=== PATIENT | male | born 1935 | race Caucasian/White ===

== ENCOUNTER → 2020-02-27 15:19 | Outpatient (CLI) | payer MEDICARE, OTHER, SELFPAY ==
--- NOTE | 2020-02-27 15:34 | XR_ITS ---
PROCEDURE: XR KNEE RT 2V CLINICAL INDICATION: KNEE REPLACEMENT Pain COMPARISON: No exams were available for comparison FINDINGS: No fracture or dislocation. No lytic or blastic change. There is normal mineralization. Mild osteoarthritic changes are present at the medial compartment and patellofemoral joint with small suprapatellar effusion. There is generalized vascular calcification. Sclerotic density is present involving the lateral aspect of the medial femoral condyle suggesting a bone island. Other findings:None. IMPRESSION: Osteoarthritis with knee joint effusion Dictated by: Marcos Bai MD 02/27/2020 16:21 Electronically signed by Marcos Bai MD in [place] 02/27/2020 16:21
== END ==
PROVIDERS: PCP Family Medicine; Visit Provider Family Medicine
DX: M25.561 Pain in right knee (principal)
CPT/HCPCS: 73560

== ENCOUNTER → 2020-03-14 13:14 | Outpatient (CLI) | payer MEDICARE, OTHER, SELFPAY ==
--- NOTE | 2020-03-14 13:17 | CT_ITS ---
PROCEDURE: CT KNEE RT WO CON CLINICAL HISTORY: RT KNEE JOINT EFFUSION,OSTEOARTHRITIS COMPARISON: No exams were available for comparison TECHNIQUE: Axial images obtained with sagittal and coronal reformats. All CT scans at the facility use one or more dose reduction, viz: automated exposure control, ma/kV adjustment per patient size (including targeted exams where dose is matched to indication, i.e. head), or iterative reconstruction technique. FINDINGS: The included extends of the distal right femur and proximal tibia and fibula are intact. There is bony demineralization. Moderately severe osteoarthritis of the medial femorotibial compartment with asymmetric joint space narrowing and small osteophyte formation demonstrated. There is mild osteoarthrosis of the lateral a femorotibial and patellofemoral articulations demonstrated with osteophytes. Mild degenerative arthrosis of the proximal femorotibial joint. Patellae is seen at an appropriate height. A small joint effusion is visualized. Diffuse atheromatous vascular calcifications are seen. IMPRESSION: 1.Moderate knee osteoarthrosis. 2. Negative for acute fracture, bony destruction or dislocation. 3. Atheromatous vascular calcifications are seen. Dictated by: Pasquale Fulton 03/14/2020 14:31 Electronically signed by Pasquale Fulton in [place] 03/14/2020 14:31
== END ==
PROVIDERS: PCP Family Medicine; Visit Provider Family Medicine
DX: M17.11 Unilateral primary osteoarthritis, right knee (principal); M25.461 Effusion, right knee
CPT/HCPCS: 73700

== ENCOUNTER → 2021-09-07 08:08 | Outpatient (CLI) | payer MEDICARE, OTHER, SELFPAY | PROVIDERS: Visit Provider Nurse Practitioner | DX: Z20.822 Contact with and (suspected) exposure to COVID-19 (principal) | CPT/HCPCS: C9803; U0003; U0005 ==

== ENCOUNTER 2021-09-24 16:34 | Emergency (ER) | payer MEDICARE, OTHER, SELFPAY ==
[2021-09-24 16:34] VITALS: BP 148/78; PULSE 98; RESP 18; TEMP 37.1; O2SAT 96; BMI 25.1
--- NOTE | 2021-09-24 17:11 | XR_ITS ---
PROCEDURE INFORMATION: Exam: XR Chest Exam date and time: 09/24/2021 5:11 PM Age: 85 years old Clinical indication: Cough; Additional info: Cough, weakness TECHNIQUE: Imaging protocol: XR of the chest. Views: 1 view. COMPARISON: No relevant prior studies available. FINDINGS: Lungs: Unremarkable. No consolidation. Pleural spaces: No definite pleural effusion. No pneumothorax. Heart/Mediastinum: Unremarkable. No cardiomegaly. Diaphragm: Minimal right hemidiaphragm elevation. Bones/joints: No acute findings. IMPRESSION: No acute findings.
[2021-09-24 17:34] LABS: Basophils # 0.1 K/mm3 (0-0.2); Basophils % 1.4 % (0.1-2.0); Eosinophils # 0.1 K/mm3 (0.0-0.4); Eosinophils % 0.9 % (0.1-12.0); Hematocrit 49.1 % (42.0-52.0); Hemoglobin 15.8 g/dL (14.1-18.0); Lymphocytes # 0.6 K/mm3 (0.7-4.5); Lymphocytes % 9.3 % (10-50); Mean Corpuscular HGB Conc 32.2 g/dL (31.8-35.4); Mean Corpuscular Volume 99.5 fl (80-94); Mean Platelet Volume 8.2 fl (7.4-10.4); Monocytes # 0.7 K/mm3 (0.1-1.0); Monocytes % 11.1 % (1.7-9.3); Neutrophils # 4.7 K/mm3 (1.8-7.8); Neutrophils % 77.3 % (37.0-80.0); Platelet Count 254 K/mm3 (142-424); Red Blood Count 4.93 M/mm3 (4.60-6.20); Red Cell Distribution Width 14.1 % (11.5-17.5); White Blood Count 6.1 K/mm3 (4.8-10.8)
[2021-09-24 17:36] LABS: Chloride 101 mmol/L (98-107); Potassium 4.3 mmoL/L (3.5-5.1); Sodium 135 mmol/L (136-145)
[2021-09-24 17:39] LABS: Alanine Aminotransferase 14 U/L (12-78); Albumin Level 4.4 g/dl (3.5-5.0); Albumin/Globulin Ratio 1.2 (1.1-1.8); Alkaline Phosphatase 99 U/L (38-126); Anion Gap 10.3 mEq/L (5-15); Aspartate Amino Transferase 34 U/L (17-59); Bilirubin,Total 0.5 mg/dl (0.2-1.3); Blood Urea Nitrogen 22 mg/dl (9-20); Carbon Dioxide 28 mmol/L (22.0-30.0); Creatinine Clearance Estimated 48 mL/min (50-200); Estimated Glomerular Filt Rate 53 ml/min (>60); GFR (African American) 64 ML/MIN (>60); Globulin 3.6 g/dL (1.3-3.2)
[2021-09-24 17:40] LABS: Calcium 8.3 mg/dl (8.4-10.2)
[2021-09-24 18:00] VITALS: BP 148/64; PULSE 86; O2SAT 94
[2021-09-24 18:14] LABS: Glucose 35 mg/dl (74-100); Troponin I 0.01 ng/ml (0.00-0.034)
--- NOTE | 2021-09-24 18:18 | PC.NURSE ---
DR MONK INFORMED OF CRITICAL BLOOD GLUCOSE
--- NOTE | 2021-09-24 18:22 | PC.NURSE ---
Pt's family updated
--- NOTE | 2021-09-24 18:27 | ECG_ITS ---
APPROVED REPORT Exam: Resting ECG HR:84 bpm ECG Measurements Heart Rate 84 AXES QRSd 141 QRS 134 QT 365 T 3 QTc 406 Conclusion ATRIAL FIBRILLATION INTRAVENTRICULAR CONDUCTION DELAY [130+ ms QRS DURATION] LATERAL MYOCARDIAL INFARCTION , OF INDETERMINATE AGE [40+ ms Q WAVE AND/OR ST/T ABNORMALITY IN I/aVL/V5/V6] ABNORMAL ECG UNCONFIRMED REPORT Electronically signed by : Alexander Lindo MD 09/24/2021 18:57:45
--- NOTE | 2021-09-24 18:57 | HMH.EDGENADL ---
ED Disposition Clinical Impression: Hypoglycemia Disposition: Home, Self-Care Condition on Discharge: Good Additional Instructions: Do not take glimepiride tonight. Starting tomorrow only take glimepiride once a day, in the morning. Contact your primary care provider on Tuesday for further instructions regarding your diabetes medication. Return to the emergency department if your symptoms return. Return to the emergency department if any confusion, sweatiness, or shakiness. Eat a snack tonight before bed. COVID test was sent, you will be called result is positive. Referrals: Alaina Dang MD [Primary Care Provider] - - Critical Care Critical Care Time: No Attestation: On 09/24/21, the high probability of a clinically significant, sudden or life threatening deterioration of the following system(s) required my full and direct attention, intervention and personal management. The time I documented below is in addition to time spent performing reported procedures but includes the following listed in this critical care notation. Medical Decision Making - Kory Inquiry Pt receiving controlled substance: No Vital Signs: 09/24/21 16:34 09/24/21 18:00 09/24/21 19:00 Temperature 98.7 F Temperature Source Oral Pulse Rate 86 82 Pulse Rate [Left Radial] 98 H Respiratory Rate 18 Blood Pressure 148/64 H 140/78 Blood Pressure [Left Arm] 148/78 H Blood Pressure Mean [Left Arm] 101 Blood Pressure Source [Left Arm] Automatic Cuff Blood Pressure Position [Left Arm] Sitting 02 Sat by Pulse Oximetry 96 94 L 97 Oxygen Delivery Method Room Air 09/24/21 19:31 09/24/21 20:13 Temperature Temperature Source Pulse Rate 87 89 Pulse Rate [Left Radial] Respiratory Rate Blood Pressure 159/77 H 142/73 H Blood Pressure [Left Arm] Blood Pressure Mean [Left Arm] Blood Pressure Source [Left Arm] Blood Pressure Position [Left Arm] 02 Sat by Pulse Oximetry 99 99 Oxygen Delivery Method Room Air - Lab Data Lab Results 09/24/21 17:20: WBC 6.1, RBC 4.93, Hgb 15.8, Hct 49.1, MCV 99.5 H, MCH 32.0 H, MCHC 32.2, RDW 14.1, Plt Count 254, MPV 8.2, Neut % (Auto) 77.3, Lymph % (Auto) 9.3 L, Stewart % (Auto) 11.1 H, Eos % (Auto) 0.9, Baso % (Auto) 1.4, Neut # (Auto) 4.7, Lymph # (Auto) 0.6 L, Stewart # (Auto) 0.7, Eos # (Auto) 0.1, Baso # (Auto) 0.1 09/24/21 17:20: Sodium 135 L, Potassium 4.3, Chloride 101, Carbon Dioxide 28, Anion Gap 10.3, BUN 22 H, Creatinine 1.30 H, Estimated Creat Clear 48, Estimated GFR 53 L, Est GFR ( Amer) 64, Glucose 35 L*, Calcium 8.3 L, Total Bilirubin 0.5, AST 34, ALT 14, Alkaline Phosphatase 99, Troponin I 0.01, Total Protein 8.0, Albumin 4.4, Globulin 3.6 H, Albumin/Globulin Ratio 1.2 09/24/21 19:25: POC Glucose 85 Result diagrams: 09/24/21 17:20 09/24/21 17:20 Orders (Tests/Meds): ED MEDICATIONS Generic Name Dose Route Start Last Admin Trade Name Freq PRN Reason Stop Dose Admin Sodium Chloride 10 ml 09/24/21 17:11 Sodium Chloride 0.9% 10ml Flush Syringe IV 10/24/21 17:10 NEEDED PRN Maintain IV Site Discontinued Medications Generic Name Dose Route Start Last Admin Trade Name Freq PRN Reason Stop Dose Admin Dextrose 50 ml 09/24/21 18:15 09/24/21 18:19 Dextrose 50% 50ml Syringe (Crash Cart) IVP 09/24/21 18:16 50 ml ONCE ONE Administration ORDERS Category Date Time Status Covid-19 Nasal PCR ([facility]) Routine Lab 09/24/21 17:20 Received Troponin I Q3H Lab 09/24/21 20:00 Received Troponin I Q3H Lab 09/24/21 23:15 Ordered - Radiology Data #1 Image(s): Chest Image Reviewed: Yes I have reviewed radiologist's interpretation PROCEDURE INFORMATION: Exam: XR Chest Exam date and time: 09/24/2021 5:11 PM Age: 85 years old Clinical indication: Cough; Additional info: Cough, weakness TECHNIQUE: Imaging protocol: XR of the chest. Views: 1 view. COMPARISON: No relevant prior studies available. FINDI
[2021-09-24 19:00] VITALS: BP 140/78; PULSE 82; O2SAT 97
[2021-09-24 19:31] VITALS: BP 159/77; PULSE 87; O2SAT 99
[2021-09-24 19:33] LABS: POC Glucose,Bedside 85 (70-110)
[2021-09-24 20:13] VITALS: BP 142/73; PULSE 89; O2SAT 99
[2021-09-24 20:19] LABS: POC Glucose,Bedside 85 (70-110)
[2021-09-24 20:37] LABS: Troponin I 0.01 ng/ml (0.00-0.034)
[2021-09-24 20:42] VITALS: BP 132/73; PULSE 93; RESP 16; TEMP 37.1; O2SAT 97
== END 2021-09-24 20:43 | disposition home or self-care (01) ==
PROVIDERS: Emergency Provider Emergency Medicine; PCP Family Medicine
DX: U07.1 COVID-19 (principal); R53.1 Weakness; E11.649 Type 2 diabetes mellitus with hypoglycemia without coma; Z79.84 Long term (current) use of oral hypoglycemic drugs
CPT/HCPCS: 36415; 71045; 80053; 82962; 84484; 85025; 93005; 99281; C9803; U0003; U0005

== ENCOUNTER → 2021-09-29 08:51 | Outpatient (CLI) | payer MEDICARE, OTHER, SELFPAY ==
[2021-09-30 07:06] LABS: Covid-19 Nasal PCR Sendout Lex POSITIVE
== END ==
PROVIDERS: PCP Family Medicine; Visit Provider Nurse Practitioner
DX: U07.1 COVID-19 (principal)
CPT/HCPCS: C9803; U0004; U0005

== ENCOUNTER → 2023-03-08 09:21 | Outpatient (POV) | payer MEDICARE, OTHER, SELFPAY | PROVIDERS: Visit Provider Dermatology | DX: Z00.00 Encounter for general adult medical examination without abnormal findings (principal) ==

== ENCOUNTER 2024-02-02 18:10 | Emergency (ER) | payer MEDICARE, OTHER, SELFPAY ==
[2024-02-02 18:10] VITALS: BP 185/83; PULSE 83; RESP 20; TEMP 36.7; O2SAT 97; BMI 24.7
--- NOTE | 2024-02-02 18:16 | PC.NURSE ---
DR GOMEZ AT BEDSIDE
--- NOTE | 2024-02-02 18:19 | CT_ITS ---
PROCEDURE INFORMATION: Exam: CT Abdomen And Pelvis Without Contrast Exam date and time: 02/02/2024 6:36 PM Age: 88 years old Clinical indication: Abdominal pain; Flank; Left; Additional info: Acute left flank pain TECHNIQUE: Imaging protocol: Computed tomography of the abdomen and pelvis without contrast. Radiation optimization: All CT scans at this facility use at least one of these dose optimization techniques: automated exposure control; mA and/or kV adjustment per patient size (includes targeted exams where dose is matched to clinical indication); or iterative reconstruction. COMPARISON: CR XR CHEST PORTABLE 09/24/2021 5:23 PM FINDINGS: Liver: Decreased density throughout the liver compatible with hepatic steatosis. Gallbladder and bile ducts: Gallbladder unremarkable. Cholelithiasis versus gallbladder sludge Pancreas: Pancreas unremarkable Spleen: The spleen is unremarkable. Adrenal glands: Normal. No mass. Kidneys and ureters: 4 mm partially obstructing distal left ureteral calculus. Associated moderate left hydroureteronephrosis. Perinephric stranding. Findings nonspecific and may reflect acute versus chronic inflammatory change. Stomach and bowel: Duodenal diverticulum. Colonic diverticulosis. No evidence of diverticulitis. Appendix: No evidence of appendicitis. Intraperitoneal space: Unremarkable. No free air. No significant fluid collection. Vasculature: Unremarkable. No abdominal aortic aneurysm. Lymph nodes: Unremarkable. No enlarged lymph nodes. Urinary bladder: Unremarkable as visualized. Reproductive: Unremarkable as visualized. Bones/joints: Unremarkable. No acute fracture. Soft tissues: Unremarkable. Other findings: Bilateral punctate nonobstructing calculi. IMPRESSION: 4 mm partially obstructing distal left ureteral calculus. Associated moderate left hydroureteronephrosis.
[2024-02-02 18:26] LABS: Basophils # 0.1 K/mm3 (0-0.2); Basophils % 1.4 % (0.1-2.0); Eosinophils # 0.5 K/mm3 (0.0-0.4); Eosinophils % 7.8 % (0.1-12.0); Hematocrit 54.7 % (42.0-52.0); Hemoglobin 17.3 g/dL (14.1-18.0); Lymphocytes # 1.8 K/mm3 (0.7-4.5); Lymphocytes % 27.1 % (10-50); Mean Corpuscular HGB Conc 31.6 g/dL (31.8-35.4); Mean Corpuscular Hemoglobin 33.7 pg (27.0-31.2); Mean Corpuscular Volume 106.6 fl (80-94); Mean Platelet Volume 8.1 fl (7.4-10.4); Monocytes # 0.3 K/mm3 (0.1-1.0); Monocytes % 4.4 % (1.7-9.3); Neutrophils % 59.3 % (37.0-80.0); Platelet Count 262 K/mm3 (142-424); Red Blood Count 5.13 M/mm3 (4.60-6.20); Red Cell Distribution Width 14.4 % (11.5-17.5); White Blood Count 6.7 K/mm3 (4.8-10.8)
[2024-02-02] MEDS: KETOROLAC 30MG/ML VIAL 15 MG IV (18:30)
[2024-02-02] MEDS: ONDANSETRON 4MG/2ML VIAL 4 MG IV (18:30)
[2024-02-02 18:31] LABS: Chloride 107 mmol/L (98-107); Potassium 3.9 mmoL/L (3.5-5.1); Sodium 139 mmol/L (136-145)
[2024-02-02] MEDS: LACTATED RINGERS 1000ML 1,000 ML 999 ML IV (18:31)
[2024-02-02 18:34] LABS: Alanine Aminotransferase 14 U/L (12-78); Albumin Level 4.1 g/dl (3.5-5.0); Albumin/Globulin Ratio 1.2 (1.1-1.8); Alkaline Phosphatase 121 U/L (38-126); Anion Gap 9.9 mEq/L (5-15); Aspartate Amino Transferase 28 U/L (17-59); Bilirubin,Total 0.5 mg/dl (0.2-1.3); Blood Urea Nitrogen 10 mg/dl (9-20); Carbon Dioxide 26 mmol/L (22.0-30.0); Creatinine Clearance Estimated 49 mL/min (50-200); Estimated Glomerular Filt Rate 57 ml/min (>60); GFR (African American) 69 ML/MIN (>60); Globulin 3.4 g/dL (1.3-3.2); Total Protein,Serum 7.5 g/dl (6.3-8.2)
[2024-02-02 18:35] LABS: Glucose 141 mg/dl (74-100)
--- NOTE | 2024-02-02 18:37 | PC.NURSE ---
PT TO CT
--- NOTE | 2024-02-02 18:42 | ED_ITS ---
Discharge Plan Disposition Patient Disposition: Home, Self-Care Prescriptions Prescriptions: New ibuprofen 800 mg tablet 800 mg PO TID PRN (Reason: pain) 7 Days Qty: 20 0RF hydrocodone-acetaminophen 5-325 mg tablet 1 tab PO Q6H PRN (Reason: pain) 3 Days Qty: 12 0RF tamsulosin [Flomax] 0.4 mg capsule 0.4 mg PO DAILY 7 Days Qty: 7 0RF ondansetron 4 mg tablet,disintegrating 4 mg PO Q6H PRN (Reason: nausea and vomiting) 5 Days Qty: 20 0RF Referrals Follow up/Referrals: Alexander Waldrop MD [Primary Care Provider] - See instructions Activity Restrictions/Add. Instructions Additional Instructions/Restrictions: You have a 7 mm obstructing kidney stone on your left side. I spoke with Dr. Michele who wants you to call his [place] office at [phone] first thing in the morning and tell the staff that Dr. Michele wants to see you at his [place] office tomorrow morning. They are to give you a appointment time upon calling. Please strain your urine drink plenty of fluids take the medications that are prescribed to you. Clinical Impressions Clinical Impression: Hydronephrosis concurrent with and due to calculi of kidney and ureter Instructions Patient Instructions: DI for Acute Abdominal Pain Discharge ED Provider: Donte Tovar General Adult HPI General Chief complaint: Abdominal Pain Stated complaint: LT side abd pain Time Seen by Provider: 02/02/24 18:16 Mode of Arrival: Wheelchair Source of Information: Patient and Spouse Limitations: No Limitations Description of Symptoms (Recalled from ER Triage Doc. by RN): pt has left sided flank pain x 1 hour and has history of kidney stones History of Present Illness HPI narrative: Patient is a 88-year-old male presenting today with 1 hour of sudden left-sided flank pain. States is severe in nature has a history of kidney stones but it has been many years states this feels very similar to that. Denies any hematuria denies any frequency dysuria urgency. No fevers. Has a history of hypertension and diabetes. Related Data Previous Rx's Medication Instructions Recorded hydrocodone 5 mg-acetaminophen 325 1 tab PO Q6H PRN pain 3 days #12 02/02/24 mg tablet tabs ibuprofen 800 mg tablet 800 mg PO TID PRN pain 7 days #20 02/02/24 tabs ondansetron 4 mg disintegrating 4 mg PO Q6H PRN nausea and 02/02/24 tablet vomiting 5 days #20 tabs tamsulosin 0.4 mg capsule (Flomax) 0.4 mg PO DAILY 7 days #7 caps 02/02/24 Allergies Allergy/AdvReac Type Severity Reaction Status Date / Time INGREDIENT: NO KNOWN - NO Allergy Unknown Uncoded 08/02/17 15:00 KNOWN DRUG ALLERGY [facility] Disclaimer: The information contained in this section may have been updated after the patient was seen, as this information can be updated by other users. Social History Smoking Status: Never smoker alcohol intake: never current occupational status: other Travel in the last 8 weeks: None ROS Obtained: Yes All systems reviewed & no additional complaints except as documented Physical Exam General General appearance: in distress (Significant pain) Respiratory Respiratory exam: Present normal lung sounds bilaterally Cardiovascular Cardiovascular exam: Present regular rate and normal rhythm Abdominal Exam Abdominal exam: Present soft; Absent distention or tenderness Neurological Exam Neurological exam: Present alert and oriented X3 Medical Decision Making Kory Inquiry Pt receiving controlled substance: No Vital Signs: 02/02/24 18:10 Temperature 98.0 F Temperature Source Oral Pulse Rate [Right Radial] 83 Respiratory Rate 20 Blood Pressure [Right Arm] 185/83 H Blood Pressure Mean [Right Arm] 117 02 Sat by Pulse Oximetry 97 Oxygen Delivery Method Room Air Lab Data Lab results reviewed: Yes I reviewed the patient's lab results. Lab Results 02/02/24 18:20: WBC 6.7, RBC 5.13, Hgb 17.3, Hct 54.7 H, MCV 106.6 H, MCH 33.7 H , MCHC 31.6 L, RDW 14.4, Plt Count 262, MPV 8.1, Neut % (Auto) 59.3, Lymph % (Auto) 27.1, Mccreary % (Auto) 4.4, Eos % (Auto) 7.8, Baso % (Auto) 1.4, Neut # (Auto) 4.0, Lymph # (Auto) 1.8, Mccreary # (Auto) 0.3, Eos # (Auto) 0.5 H, Baso # (Auto) 0.1, Sodium 139, Potassium 3.9, Chloride 107, Carbon Dioxide 26, Anion Gap 9.9, BUN 10, Creatinine 1.20, Estimated Creat Clear 49, Estimated GFR 57 L, Est GFR ( Amer) 69, Glucose 141 H, Calcium 9.0, Total Bilirubin 0.5, AST 28, ALT 14, Alkaline Phosphatase 121, Total Protein 7.5, Albumin 4.1, Globulin 3.4 H, Albumin/Globulin Ratio 1.2 02/02/24 19:15: Urine Color Yellow, Urine Appearance Clear, Urine pH 5.5, Ur Specific Montara 1.020, Urine Protein Negative, Urine Glucose (UA) 3+, Urine Ketones Negative, Urine Blood Negative, Urine Nitrate Negative, Urine Bilirubin Negative, Urine Urobilinogen 1.0, Ur Leukocyte Esterase Negative, Urine RBC None, Urine WBC None, Ur Squamous Epith Cells None, Urine Bacteria None 02/02/24 18:20 02/02/24 18:20 Orders (Tests/Meds): ED MEDICATIONS Discontinued Medications Generic Name Dose Route Start Last Admin Trade Name Freq PRN Reason Stop Dose Admin Hydrocodone Bitart/Acetaminophen 1 tab 02/02/24 20:12 Hydrocodone/Apap 5/325 Mg Tablet PO 02/02/24 20:13 ONCE ONE Lactated Ringer's 1,000 mls @ 999 mls/hr 02/02/24 18:30 02/02/24 18:31 Lactated Ringer's 1000 Ml Bag IV 02/02/24 19:30 999 mls/hr .Q1H1M JUDITH Administration Ibuprofen 800 mg 02/02/24 20:12 Ibuprofen 400 Mg Tablet PO 02/02/24 20:13 ONCE ONE Ketorolac Tromethamine 15 mg 02/02/24 18:19 02/02/24 18:30 Ketorolac 30mg/Ml Vial IV 02/02/24 18:20 15 mg ONCE ONE Administration Morphine Sulfate 4 mg 02/02/24 19:22 02/02/24 19:25 Morphine 4mg/Ml Syringe IV 02/02/24 19:23 4 mg ONCE ONE Administration Ondansetron HCl 4 mg 02/02/24 18:19 02/02/24 18:30 Ondansetron 4mg/2ml Vial IV 02/02/24 18:20 4 mg ONCE ONE Administration Tamsulosin HCl 0.4 mg 02/02/24 20:12 Tamsulosin 0.4mg Capsule PO 02/02/24 20:13 ONCE ONE ORDERS Category Date Time Status CT abdomen pelvis wo con Stat Cat Scan 02/02/24 18:19 Taken CBC w/Auto Diff [Complete Blood Count Auto Diff] Stat Lab 02/02/24 18:20 Completed CMP [Comprehensive Metabolic Panel] Stat Lab 02/02/24 18:20 Completed UA [Urinalysis and Microscopic] Stat Lab 02/02/24 19:15 Completed Medical Decision Narrative: Patient is an 88-year-old male present today with sudden left-sided flank pain differential includes AAA, musculoskeletal strain, kidney stone etc. Noncontrasted CT scan was ordered in addition to IV fluids Toradol and Zofran and will reassess. CT scan performed to person interpreted which shows a large proximal ureteral stone measuring 7 mm on my measurement with obstruction and hydroureter and hydronephrosis. Patient unable to provide a urine at this point but has no clinical signs or symptoms of sepsis or urinary tract infection. This stone is large patient still has some symptoms after Toradol is unlikely to pass. Also they have a very large trip planned outside of the country. I discussed with him multiple options including transfer versus attempted outpatient follow-up versus trial of passage. Their preference would be to be evaluated by a urologist which we do not have at [place]. I will discuss the case with Dr. Michele with possible we are attempting to make contact. Reassessment 8:17 PM patient has required serial doses of pain medicine. I spoke with Dr. Michele who is on-call for [facility]. He gave the patient an option of following up outpatient which patient agreed to. Patient will call Dr. Michele's [place] office first thing in the morning phone number was provided, and he is to tell their staff that Dr. Michele wants to see him at his [place] office tomorrow. They will give him a appointment time at that moment. He was given prescription of ibuprofen Zofran Flomax and [place]. He was given a urine strainer and advised to push p.o. fluids. He was given a dose of oral medications prior to being discharged I offered to send his medications to [facility] pharmacy but his refused to drive outside of town therefore his scripts were sent to [id number]. Patient was discharged in stable condition. Critical Care Critical Care Time Critical Care Time: No
--- NOTE | 2024-02-02 18:49 | PC.NURSE ---
DR GOMEZ AT BEDSIDE TO UPDATE PT AND FAMILY
--- NOTE | 2024-02-02 19:09 | PC.NURSE ---
Call out to Dr. Michele with Urology; awaiting call back.
--- NOTE | 2024-02-02 19:15 | PC.NURSE ---
urine collected and sent to lab
[2024-02-02 19:25] LABS: Microscopic, Urine URINE MICROSCOPIC (MICROSCOPIC)
[2024-02-02] MEDS: MORPHINE 4MG/ML SYRINGE 4 MG IV (19:25)
[2024-02-02 19:29] LABS: Appearance,Urine CLEAR (Clear); Bilirubin,Urine Negative (Negative); Blood, Urine Negative (Negative); Color,Urine YELLOW (Yellow); Glucose,Urine (UA) 3+ (Negative); Ketones,Urine Negative (Negative); Leukocyte Esterase,Urine Negative (Negative); Nitrate,Urine Negative (Negative); PH,Urine 5.5 (5.0-8.5); Protein,Urine Negative (Negative)
[2024-02-02] MEDS: IBUPROFEN 400 MG TABLET 800 MG PO (20:25)
[2024-02-02] MEDS: TAMSULOSIN 0.4MG CAPSULE 0.400000000000000022 MG PO (20:25)
[2024-02-02] MEDS: HYDROCODONE/APAP 5/325 MG TABLET 1 TAB PO (20:25)
[2024-02-02 20:35] VITALS: BP 161/86; PULSE 81; RESP 20; TEMP 36.6; O2SAT 97
== END 2024-02-02 20:36 | disposition home or self-care (01) ==
PROVIDERS: Emergency Provider Student in an Organized Health Care Education/Training Program; PCP Family Medicine
DX: N13.2 Hydronephrosis with renal and ureteral calculous obstruction (principal); N13.4 Hydroureter; R10.32 Left lower quadrant pain; I10 Essential (primary) hypertension; E11.9 Type 2 diabetes mellitus without complications
CPT/HCPCS: 74176; 80053; 81001; 85025; 96361; 96374; 96375; 99285; J1885; J2270; J2405; J7120

== ENCOUNTER 2024-02-05 17:07 | Emergency (ER) | payer MEDICARE, OTHER, SELFPAY ==
[2024-02-05 17:15] VITALS: BP 167/84; PULSE 88; RESP 16; TEMP 36.7; O2SAT 97; BMI 24.0
--- NOTE | 2024-02-05 17:34 | HMH.EDGENADL ---
Discharge Plan Prescriptions Prescriptions: No Action ibuprofen 800 mg tablet 800 mg PO TID PRN (Reason: pain) 7 Days Qty: 20 0RF hydrocodone-acetaminophen 5-325 mg tablet 1 tab PO Q6H PRN (Reason: pain) 3 Days Qty: 12 0RF tamsulosin [Flomax] 0.4 mg capsule 0.4 mg PO DAILY 7 Days Qty: 7 0RF ondansetron 4 mg tablet,disintegrating 4 mg PO Q6H PRN (Reason: nausea and vomiting) 5 Days Qty: 20 0RF Referrals Follow up/Referrals: Alexander Waldrop MD [Primary Care Provider] - See instructions Discharge ED Provider: Shelley Franklin General Adult HPI General Stated complaint: Possible kidney stone Time Seen by Provider: 02/05/24 17:25 Related Data Previous Rx's Medication Instructions Recorded hydrocodone 5 mg-acetaminophen 325 1 tab PO Q6H PRN pain 3 days #12 02/02/24 mg tablet tabs ibuprofen 800 mg tablet 800 mg PO TID PRN pain 7 days #20 02/02/24 tabs ondansetron 4 mg disintegrating 4 mg PO Q6H PRN nausea and 02/02/24 tablet vomiting 5 days #20 tabs tamsulosin 0.4 mg capsule (Flomax) 0.4 mg PO DAILY 7 days #7 caps 02/02/24 Allergies Allergy/AdvReac Type Severity Reaction Status Date / Time INGREDIENT: NO KNOWN - NO Allergy Unknown Uncoded 08/02/17 15:00 KNOWN DRUG ALLERGY [facility] Disclaimer: The information contained in this section may have been updated after the patient was seen, as this information can be updated by other users. Social History (Updated 02/02/24 @ 20:18 by Donte Tovar MD) Smoking Status: Never smoker alcohol intake: never current occupational status: other Travel in the last 8 weeks: None ROS Obtained: Yes Systems reviewed as appropriate & no additional complaints except as documented Physical Exam General General appearance: alert and in no apparent distress Head Head exam: atraumatic and normal inspection Eye Eye exam: Present normal appearance, PERRL and EOMI ENT ENT exam: Present normal exam, normal oropharynx and mucous membranes moist Neck Neck exam: Present normal inspection, full ROM and trachea midline; Absent lymphadenopathy Chest Chest inspection: Present normal inspection and symmetric chest wall rise Respiratory Respiratory exam: Present normal lung sounds bilaterally; Absent accessory muscle use Cardiovascular Cardiovascular exam: Present regular rate, normal rhythm, normal heart sounds, +S1 and +S2 Abdominal Exam Abdominal exam: Present soft and normal bowel sounds; Absent tenderness, guarding or rebound Extremities Exam Extremities exam: Present normal inspection and full ROM Neurological Exam Neurological exam: Present alert, oriented X3 and CN II-XII intact Psychiatric Psychiatric exam: Present normal affect and normal mood Skin Skin exam: Present warm, dry and normal color Lymphatic Lymphatic Findings: no adenopathy Medical Decision Making Medical Decision Narrative: In summary patient is a [age, sex] who presents to the emergency department for evaluation of [complaint]. Patient is [hemodynamically stable/unstable] upon arrival, [febrile/afebrile]. [Unremarkable physical exam, nonfocal exam versus focal remarkable exam]. Differential diagnosis includes [DDx]. Initial workup will be conducted with [hematologic labs, imaging, respiratory swab, describe workup]. Initial interventions include [crystalloid bolus, medications, p.o. challenge, etc.] initial workup reviewed by me [hematologic labs are remarkable for... Imaging remarkable for... Urinalysis remarkable for]. Upon repeat evaluation [patient had acceptable resolution of symptoms, had persistent pain for which additional interventions were conducted (describe interventions), tolerated p.o., was ambulatory, etc.]. Given this [patient is appropriate for discharge at this time and will be discharged with a prescription for... The case was discussed with hospital medicine regarding management and they will admit the patient their service for continued evaluation at this time... Etc.] Places where you can increase complexity: I informally interpreted the patient's chest x-ray or CT read and is remarkable for... Documenting what the playground monitor shows with rate and rhythm Consideration of test but deferring. Ex: I considered chest x-ray on this patient however given that they have no oxygen requirement and are clear to auscultation all lung brantley will be deferred. Social determinants of health: Given that patient is undomiciled increases complexity. Given that patient has polysubstance abuse compounds all aspects of care
--- NOTE | 2024-02-05 17:39 | ED_ITS ---
Discharge Plan Disposition Patient Disposition: Home, Self-Care Condition: Good Prescriptions Prescriptions: New hydrocodone-acetaminophen 5-325 mg tablet 1 tab PO Q8H PRN (Reason: pain) Qty: 12 0RF No Action ibuprofen 800 mg tablet 800 mg PO TID PRN (Reason: pain) 7 Days Qty: 20 0RF hydrocodone-acetaminophen 5-325 mg tablet 1 tab PO Q6H PRN (Reason: pain) 3 Days Qty: 12 0RF tamsulosin [Flomax] 0.4 mg capsule 0.4 mg PO DAILY 7 Days Qty: 7 0RF ondansetron 4 mg tablet,disintegrating 4 mg PO Q6H PRN (Reason: nausea and vomiting) 5 Days Qty: 20 0RF Referrals Follow up/Referrals: Alexander Waldrop MD [Primary Care Provider] - See instructions Activity Restrictions/Add. Instructions Additional Instructions/Restrictions: You were evaluated in the emergency department today. You were seen here 3 days ago and prescribed for medications. Below I have listed her medications and what they are for. -Hydrocodone-acetaminophen - This is for pain. This is a controlled substance which is a narcotic. It may make you sleepy. Do not drive or operate heavy machinery while taking this medication. Take it every 6-8 hours as needed for pain. I did refill this medication for you in case you have run out. If you still have medications at home, do not pick it up. This medication contains tylenol. Do not take tylenol with it. If you do not want to take this strong of a medication, you may take tylenol instead. -Flomax - This medication helps flush out your kidneys and increase his urine flow. Take this nightly as explained on the bottle. -Ondansetron - Sometimes pain and pain medications can make you feel nauseated. This medication is to treat nausea. Take it every 6-8 hours as needed for nausea and vomiting as instructed on the bottle. -Ibuprofen - Take ibuprofen every 3 times a day as needed for pain. You may take it in combination with all of the other medications. Please call your urologist in the morning and let him know that you are still having persistent pain. Return to the emergency department for new or worsening symptoms, such as significant worsening of pain, intractable vomiting, or fever greater than 100.4 ?F. Clinical Impressions Clinical Impression: Ureterolithiasis, Renal colic Instructions Patient Instructions: DI for Kidney Stones, DI for Acute Pain -- Adult Discharge ED Provider: Shelley Franklin General Adult HPI General Chief complaint: PAIN Stated complaint: Possible kidney stone Time Seen by Provider: 02/05/24 17:25 History of Present Illness HPI narrative: This patient is an 88-year-old male presenting to the emergency department for evaluation with concern for left flank pain. Patient was seen here 3 days ago and diagnosed with an obstructive left kidney stone. He was given instructions for follow-up with Dr. Michele, and he saw him at the end of the week. He is scheduled for procedure on Tuesday. He notes that he was given 4 prescriptions at [facility], and he is not sure what to be taking when, so when his pain got worse today he took ibuprofen. Despite taking ibuprofen, he is in severe pain on his left flank. No fevers, vomiting, or other concerns noted. He states that he is been straining his urine but has not found any stone. No other concerns noted at this time. I reviewed patient's medical records and noted that he was seen here on 02/02/[address] scan that showed an obstructive left ureteral stone. Related Data Previous Rx's Medication Instructions Recorded hydrocodone 5 mg-acetaminophen 325 1 tab PO Q6H PRN pain 3 days #12 02/02/24 mg tablet tabs ibuprofen 800 mg tablet 800 mg PO TID PRN pain 7 days #20 02/02/24 tabs ondansetron 4 mg disintegrating 4 mg PO Q6H PRN nausea and 02/02/24 tablet vomiting 5 days #20 tabs tamsulosin 0.4 mg capsule (Flomax) 0.4 mg PO DAILY 7 days #7 caps 02/02/24 hydrocodone 5 mg-acetaminophen 325 1 tab PO Q8H PRN pain #12 tabs 02/05/24 mg tablet Allergies Allergy/AdvReac Type Severity Reaction Status Date / Time INGREDIENT: NO KNOWN - NO Allergy Unknown Uncoded 08/02/17 15:00 KNOWN DRUG ALLERGY [facility] Disclaimer: The information contained in this section may have been updated after the patient was seen, as this information can be updated by other users. Social History Smoking Status: Never smoker alcohol intake: never current occupational status: other Travel in the last 8 weeks: None ROS Obtained: Yes All systems reviewed & no additional complaints except as documented Physical Exam General General appearance: alert and in no apparent distress Comment: Uncomfortable appearing Head Head exam: atraumatic and normocephalic Eye Eye exam: Present normal appearance, PERRL and EOMI ENT ENT exam: Present normal exam, normal oropharynx, mucous membranes moist and normal external ear exam Neck Neck exam: Present normal inspection, full ROM and trachea midline; Absent tenderness Chest Chest inspection: Present normal inspection and symmetric chest wall rise; Absent tenderness Respiratory Respiratory exam: Present normal lung sounds bilaterally; Absent respiratory distress, wheezes, stridor or accessory muscle use Cardiovascular Cardiovascular exam: Present regular rate and normal rhythm Abdominal Exam Abdominal exam: Present soft; Absent distention, tenderness or guarding Extremities Exam Extremities exam: Present normal inspection, full ROM and normal capillary refill; Absent tenderness or edema Back Exam Back exam: Present full ROM and CVA tenderness (L) Neurological Exam Neurological exam: Present alert, oriented X3, CN II-XII intact and normal gait; Absent motor sensory deficit Psychiatric Psychiatric exam: Present normal affect and normal mood Skin Skin exam: Present warm and dry Medical Decision Making Medical Records Medical records reviewed: Yes I reviewed the patient's medical records. Kory Inquiry Pt receiving controlled substance: Yes Kory was queried for this patient: Yes Risks and benefits of using a controlled substance: were discussed with pt by me Vital Signs: 02/05/24 17:15 02/05/24 18:32 Temperature 98.1 F 98.1 F Temperature Source Oral Pulse Rate 78 Pulse Rate [Left Radial] 88 Respiratory Rate 16 16 Blood Pressure 161/89 H Blood Pressure [Right Arm] 167/84 H Blood Pressure Mean [Right Arm] 111 Blood Pressure Source [Right Arm] Automatic Cuff Blood Pressure Position [Right Arm] Sitting 02 Sat by Pulse Oximetry 97 Oxygen Delivery Method Room Air Room Air Lab Data Lab results reviewed: Yes I reviewed the patient's lab results. Lab Results 02/05/24 17:47: WBC 8.1, RBC 4.90, Hgb 16.1, Hct 52.0, MCV 106.1 H, MCH 32.9 H, MCHC 31.0 L, RDW 14.5, Plt Count 241, MPV 8.1, Neut % (Auto) 77.7, Lymph % (Auto) 11.8, Kern % (Auto) 4.9, Eos % (Auto) 3.8, Baso % (Auto) 1.9, Neut # (Auto) 6.3, Lymph # (Auto) 1.0, Kern # (Auto) 0.4, Eos # (Auto) 0.3, Baso # (Auto) 0.2, Sodium 139, Potassium 4.1, Chloride 104, Carbon Dioxide 28, Anion Gap 11.1, BUN 17 D, Creatinine 1.30 H, Estimated Creat Clear 45, Estimated GFR 52 L, Est GFR ( Amer) 63, Glucose 125 H, Calcium 8.7, Total Bilirubin 0.7, AST 27, ALT 14, Alkaline Phosphatase 126, Total Protein 7.1, Albumin 3.9, Globulin 3.2, Albumin/Globulin Ratio 1.2 02/05/24 17:53: Urine Color Yellow, Urine Appearance Clear, Urine pH 7.0, Ur Specific Rochelle 1.015, Urine Protein Negative, Urine Glucose (UA) 3+, Urine Ketones Negative, Urine Blood Negative, Urine Nitrate Negative, Urine Bilirubin Negative, Urine Urobilinogen 4.0, Ur Leukocyte Esterase Negative, Urine RBC Occasional, Urine WBC Occasional, Ur Squamous Epith Cells Occasional, Urine Bacteria Trace 02/05/24 17:47 02/05/24 17:47 Orders (Tests/Meds): ED MEDICATIONS Discontinued Medications Generic Name Dose Route Start Last Admin Trade Name Freq PRN Reason Stop Dose Admin Acetaminophen 1,000 mg 02/05/24 17:38 02/05/24 17:51 Acetaminophen 500mg Tab PO 02/05/24 17:39 1,000 mg ONCE ONE Administration Ketorolac Tromethamine 15 mg 02/05/24 17:38 02/05/24 17:51 Ketorolac 30mg/Ml Vial IV 02/05/24 17:39 15 mg ONCE ONE Administration Oxycodone HCl 10 mg 02/05/24 17:38 02/05/24 17:51 Oxycodone 5mg Immediate Release Tablet PO 02/05/24 17:39 10 mg ONCE ONE Administration ORDERS Category Date Time Status Complete Blood Count Auto Diff Stat Lab 02/05/24 17:47 Completed Comprehensive Metabolic Panel Stat Lab 02/05/24 17:47 Completed UA [Urinalysis and Microscopic] Stat Lab 02/05/24 17:53 Completed Urine Culture Stat Micro 02/05/24 18:00 Received Medical Decision Narrative: In summary, this patient is a 88-year-old male presenting to the Emergency Department for evaluation of with concern for left flank pain in the setting of known kidney stone. Differential diagnoses considered include but are not limited to renal colic, ureterolithiasis, infected stone, EMILY. Ruling out the most morbid conditions drove assessment. I reviewed patient's past medical records and noted evaluation here 3 days ago as per HPI. On exam, the patient is uncomfortable appearing but he is nontoxic-appearing with reassuring vital signs on cardiac telemetry. Workup included CBC, CMP, urinalysis, urine culture. He was given a bolus of IV fluids as well as IV Toradol, oral oxycodone, oral Tylenol for symptomatic improvement. Patient states that he does still have prescriptions at home, but he states he was given so many and he was not sure what to take when so he had not been taking them. He has follow-up scheduled for Tuesday for procedure, but he states he does not know if he can make it until then if he is unable to get the pain under control. On reassessment after administration of medications above, patient states that he is feeling much better. His pain is now well-controlled. Urine is not concerning for infection, and kidney function is around his baseline. No significant leukocytosis noted. He already has close follow-up arranged on Tuesday. Given that he has reassuring workup and is now feeling much better, I feel that he is appropriate for discharge with continued plan to follow-up with urology. I gave him detailed instructions with regard to the medications at home so that he is no longer confused and is able to take pain medication at home as appropriate. I did give him prescription for a few more days of narcotic pain medication given his ureterolithiasis and the fact that he is awaiting outpatient definitive management. He was given strict return precautions and was discharged after all questions were answered. Critical Care Critical Care Time Critical Care Time: No
[2024-02-05] MEDS: KETOROLAC 30MG/ML VIAL 15 MG IV (17:51)
[2024-02-05] MEDS: OXYCODONE 5MG IMMEDIATE RELEASE TABLET 10 MG PO (17:51)
[2024-02-05] MEDS: ACETAMINOPHEN 500MG TAB 1000 MG PO (17:51)
[2024-02-05 17:55] LABS: Basophils # 0.2 K/mm3 (0-0.2); Basophils % 1.9 % (0.1-2.0); Eosinophils # 0.3 K/mm3 (0.0-0.4); Eosinophils % 3.8 % (0.1-12.0); Hemoglobin 16.1 g/dL (14.1-18.0); Lymphocytes % 11.8 % (10-50); Mean Corpuscular Hemoglobin 32.9 pg (27.0-31.2); Mean Corpuscular Volume 106.1 fl (80-94); Mean Platelet Volume 8.1 fl (7.4-10.4); Monocytes # 0.4 K/mm3 (0.1-1.0); Monocytes % 4.9 % (1.7-9.3); Neutrophils # 6.3 K/mm3 (1.8-7.8); Neutrophils % 77.7 % (37.0-80.0); Platelet Count 241 K/mm3 (142-424); Red Cell Distribution Width 14.5 % (11.5-17.5); White Blood Count 8.1 K/mm3 (4.8-10.8)
[2024-02-05 18:01] LABS: Chloride 104 mmol/L (98-107); Potassium 4.1 mmoL/L (3.5-5.1); Sodium 139 mmol/L (136-145)
[2024-02-05 18:05] LABS: Appearance,Urine CLEAR (Clear); Bilirubin,Urine Negative (Negative); Blood, Urine Negative (Negative); Color,Urine YELLOW (Yellow); Glucose,Urine (UA) 3+ (Negative); Ketones,Urine Negative (Negative); Leukocyte Esterase,Urine Negative (Negative); Microscopic, Urine URINE MICROSCOPIC (MICROSCOPIC); Nitrate,Urine Negative (Negative); Protein,Urine Negative (Negative); Specific Gravity, Urine 1.015 (1.005-1.030)
[2024-02-05 18:05] LABS: Alanine Aminotransferase 14 U/L (12-78); Albumin Level 3.9 g/dl (3.5-5.0); Albumin/Globulin Ratio 1.2 (1.1-1.8); Alkaline Phosphatase 126 U/L (38-126); Anion Gap 11.1 mEq/L (5-15); Aspartate Amino Transferase 27 U/L (17-59); Bilirubin,Total 0.7 mg/dl (0.2-1.3); Blood Urea Nitrogen 17 mg/dl (9-20); Calcium 8.7 mg/dl (8.4-10.2); Carbon Dioxide 28 mmol/L (22.0-30.0); Creatinine Clearance Estimated 45 mL/min (50-200); Estimated Glomerular Filt Rate 52 ml/min (>60); GFR (African American) 63 ML/MIN (>60); Globulin 3.2 g/dL (1.3-3.2); Glucose 125 mg/dl (74-100); Total Protein,Serum 7.1 g/dl (6.3-8.2)
[2024-02-05 18:12] LABS: Bacteria,Urine Trace /lpf; RBC,Urine Occasional #/hpf (0-3); Squamous Epithelial Cell,Urine Occasional #/hpf (0-5); WBC,Urine Occasional #/hpf (0-3)
[2024-02-05 18:32] VITALS: BP 161/89; PULSE 78; RESP 16; TEMP 36.7; O2SAT 98
--- NOTE | 2024-02-07 10:54 | PC.NURSE ---
discussed urine culture with , prescription for cefdinir sent to pharmacy of pt choice, pt contacted and updated about new medicine order
--- NOTE | 2024-02-08 08:46 | PC.NURSE ---
DISCUSSED URINE CULTURE WITH DR GOMEZ, NO NEW ORDERS
== END 2024-02-05 18:32 | disposition home or self-care (01) ==
PROVIDERS: Emergency Provider Emergency Medicine; PCP Family Medicine
DX: N20.1 Calculus of ureter (principal); N23 Unspecified renal colic; N39.0 Urinary tract infection, site not specified; B96.29 Other Escherichia coli [E. coli] as the cause of diseases classified elsewhere
CPT/HCPCS: 80053; 81001; 85025; 87086; 87088; 87186; 96374; 99284; J1885

== ENCOUNTER 2024-02-18 21:00 | Emergency (ER) | payer MEDICARE, OTHER, SELFPAY ==
[2024-02-18 21:02] VITALS: BP 183/83; PULSE 84; RESP 22; TEMP 37; O2SAT 98; BMI 24.3
--- NOTE | 2024-02-18 21:16 | CT_ITS ---
PROCEDURE INFORMATION: Exam: CT Abdomen And Pelvis With Contrast Exam date and time: 02/18/2024 10:08 PM Age: 88 years old Clinical indication: Abdominal pain; Flank; Left; Additional info: Recent lithotripsy/l flank pain TECHNIQUE: Imaging protocol: Computed tomography of the abdomen and pelvis with contrast. Total images: 316 Radiation optimization: All CT scans at this facility use at least one of these dose optimization techniques: automated exposure control; mA and/or kV adjustment per patient size (includes targeted exams where dose is matched to clinical indication); or iterative reconstruction. Contrast material: ISOVUE; Contrast volume: 75 ml; Contrast route: IV; COMPARISON: CT ABDOMEN PELVIS WO CON 02/02/2024 6:36 PM FINDINGS: Lungs: Minor bibasilar dependent atelectasis. Small focus of peripheral tree-in-bud opacity in the right lower lobe implying distal small airway inflammation, most likely subclinical. Pleural spaces: Left basilar pleural thickening/scarring. No pleural effusion. Heart: Normal heart size. Coronary arteries: Moderate coronary artery calcifications. Liver: There are few tiny subcentimeter hepatic hypodensities, far too small to characterize but statistically cysts. Otherwise, unremarkable liver. Gallbladder and biliary ducts: Cholelithiasis without secondary signs for acute cholecystitis. No bile duct dilatation. Pancreas: Normal. No ductal dilation. Spleen: Normal. No splenomegaly. Adrenal glands: Normal. No mass. Kidneys and ureters: Interval worsening moderate to severe left hydroureteronephrosis secondary to a 5 mm obstructing calculus in the distal ureter, axial image 115 and coronal image 42. Increasing left perinephric edema. Stable bilateral intrarenal calculi. No renal mass. Stomach and bowel: Moderate fluid distension of the stomach. Large duodenal diverticulum. No ileus or bowel obstruction. Unremarkable small bowel. Colonic interposition below the anterior right hemidiaphragm. Focal wall thickening of the descending colon associated with diverticular formation implying mild diverticulitis. Moderate diverticulosis of the descending and sigmoid colon. Collapsed rectum. Appendix: Normal appendix. Intraperitoneal space: Unremarkable. No free air. No significant fluid collection. Vasculature: Abdominal aorta is normal in caliber. Major abdominal vessels enhance appropriately. Pelvic phleboliths. Lymph nodes: Calcified bilateral hilar lymph nodes compatible with remote granulomatous disease. Urinary bladder: Unremarkable as visualized. Reproductive: Mild prostatomegaly. Bones/joints: Osseous demineralization. Moderate degenerative changes lower thoracic spine. Severe degenerative changes lumbar spine. Remote mild anterior wedge compression fracture T12 vertebral body. Mild degenerative changes bilateral hips and SI joints. Minor lumbar dextrocurvature. Soft tissues: Unremarkable. IMPRESSION: 1. Interval worsening now moderate to severe left hydroureteronephrosis. 2. Obstructing 5 mm distal left ureteral stone, slightly migrated distally from prior exam. 3. Increasing left perinephric edema, secondary to obstructive uropathy. 4. Interval focal mild diverticulitis of the descending colon. No complicating features. Underlying moderate diverticulosis. 5. Bilateral nephrolithiasis. 6. Additional stable chronic and incidental findings.
[2024-02-18] MEDS: ACETAMINOPHEN 1,000MG/100ML VIAL 1000 MG IV (21:21)
[2024-02-18] MEDS: KETOROLAC 30MG/ML VIAL 30 MG IV (21:21)
[2024-02-18] MEDS: ONDANSETRON 4MG/2ML VIAL 4 MG IV (21:21)
[2024-02-18 21:22] LABS: Appearance,Urine CLEAR (Clear); Bilirubin,Urine Negative (Negative); Blood, Urine 1+ (Negative); Color,Urine YELLOW (Yellow); Glucose,Urine (UA) 3+ (Negative); Ketones,Urine Negative (Negative); Leukocyte Esterase,Urine Negative (Negative); Nitrate,Urine Negative (Negative); Protein,Urine Negative (Negative); Urobilinogen,Urine 0.2 EU/dl (0.2)
[2024-02-18] MEDS: MORPHINE 2MG/ML SYRINGE 2 MG IV ×2 (21:22→21:24)
[2024-02-18 21:23] LABS: Basophils # 0.1 K/mm3 (0-0.2); Eosinophils # 0.3 K/mm3 (0.0-0.4); Eosinophils % 3.3 % (0.1-12.0); Hematocrit 46.5 % (42.0-52.0); Hemoglobin 16.1 g/dL (14.1-18.0); Lymphocytes # 1.4 K/mm3 (0.7-4.5); Lymphocytes % 14.4 % (10-50); Mean Corpuscular HGB Conc 34.7 g/dL (31.8-35.4); Mean Corpuscular Hemoglobin 36.9 pg (27.0-31.2); Mean Corpuscular Volume 106.4 fl (80-94); Mean Platelet Volume 8.2 fl (7.4-10.4); Monocytes # 0.7 K/mm3 (0.1-1.0); Monocytes % 6.9 % (1.7-9.3); Neutrophils % 74.3 % (37.0-80.0); Platelet Count 232 K/mm3 (142-424); Red Blood Count 4.37 M/mm3 (4.60-6.20); Red Cell Distribution Width 14.3 % (11.5-17.5); White Blood Count 9.4 K/mm3 (4.8-10.8)
[2024-02-18 21:27] LABS: Chloride 105 mmol/L (98-107)
--- NOTE | 2024-02-18 21:27 | ED_ITS ---
Discharge Plan Disposition Patient Disposition: Xfer Short-Term Hosp Condition: Fair Chief Complaint: PAIN Prescriptions Prescriptions: No Action hydrocodone-acetaminophen 5-325 mg tablet 1 tab PO Q8H PRN (Reason: pain) Qty: 12 0RF cefdinir 300 mg capsule 300 mg PO BID 10 Days Qty: 20 0RF ibuprofen 800 mg tablet 800 mg PO TID PRN (Reason: pain) 7 Days Qty: 20 0RF hydrocodone-acetaminophen 5-325 mg tablet 1 tab PO Q6H PRN (Reason: pain) 3 Days Qty: 12 0RF tamsulosin [Flomax] 0.4 mg capsule 0.4 mg PO DAILY 7 Days Qty: 7 0RF ondansetron 4 mg tablet,disintegrating 4 mg PO Q6H PRN (Reason: nausea and vomiting) 5 Days Qty: 20 0RF Referrals Follow up/Referrals: Alexander Waldrop MD [Primary Care Provider] - See instructions Clinical Impressions Clinical Impression: Hydronephrosis, Ureterolithiasis, Diverticulitis Stand Alone Forms Stand Alone Forms: Transfer Record - ED Discharge ED Provider: Ousmane Tucker General Adult HPI <Ousmane Tucker MD - Last Filed: 02/18/24 23:02> General Chief complaint: PAIN Stated complaint: Left side pain, history kidney stone Time Seen by Provider: 02/18/24 21:16 Mode of Arrival: Wheelchair Source of Information: Patient Limitations: No Limitations Description of Symptoms (Recalled from ER Triage Doc. by RN): Pt presents with left flank pain for 1 hr. Was seen [address] Winston at [facility] who did a lithotripsy on him. Pt denies any hematuria, nausea or vomiting, rates his pain 10/10 History of Present Illness HPI narrative: Patient is a 88-year-old male with past medical history of ureterolithiasis status post recent lithotripsy in [place] who presents emergency department for evaluation of left flank pain and vomiting. Stones were on the left. Onset of this was acute, 1 hour prior to arrival, severe in intensity, nonmodifiable, paroxysmal however severe at baseline with worsening. There is associated nonbloody vomiting. No other acute complaints at this time. Related Data Previous Rx's Medication Instructions Recorded hydrocodone 5 mg-acetaminophen 325 1 tab PO Q6H PRN pain 3 days #12 02/02/24 mg tablet tabs ibuprofen 800 mg tablet 800 mg PO TID PRN pain 7 days #20 02/02/24 tabs ondansetron 4 mg disintegrating 4 mg PO Q6H PRN nausea and 02/02/24 tablet vomiting 5 days #20 tabs tamsulosin 0.4 mg capsule (Flomax) 0.4 mg PO DAILY 7 days #7 caps 02/02/24 hydrocodone 5 mg-acetaminophen 325 1 tab PO Q8H PRN pain #12 tabs 02/05/24 mg tablet cefdinir 300 mg capsule 300 mg PO BID 10 days #20 caps 02/07/24 Allergies Allergy/AdvReac Type Severity Reaction Status Date / Time INGREDIENT: NO KNOWN - NO Allergy Unknown Uncoded 08/02/17 15:00 KNOWN DRUG ALLERGY PFSH <Ousmane Tucker MD - Last Filed: 02/18/24 23:02> [facility] Disclaimer: The information contained in this section may have been updated after the patient was seen, as this information can be updated by other users. Social History Smoking Status: Never smoker alcohol intake: never current occupational status: other Travel in the last 8 weeks: None <Ousmane Tucker MD - Last Filed: 02/18/24 23:02> ROS Obtained: Yes Systems reviewed as appropriate & no additional complaints except as documented Physical Exam <Ousmane Tucker MD - Last Filed: 02/18/24 23:02> General General appearance: alert and in distress Head Head exam: atraumatic and normocephalic Eye Eye exam: Present PERRL ENT ENT exam: Present mucous membranes moist Neck Neck exam: Present normal inspection Chest Chest inspection: Present normal inspection and symmetric chest wall rise Respiratory Respiratory exam: Absent respiratory distress Cardiovascular Cardiovascular exam: Present regular rate and normal rhythm Abdominal Exam Abdominal exam: Present soft; Absent tenderness Extremities Exam Extremities exam: Present normal inspection Neurological Exam Neurological exam: Present alert Psychiatric Psychiatric exam: Present normal affect Skin Skin exam: Present warm and dry Medical Decision Making <Ousmane Tucker MD - Last Filed: 02/18/24 23:02> Kory Inquiry Pt receiving controlled substance: No Vital Signs: 02/18/24 21:02 02/18/24 21:30 02/18/24 22:30 Temperature 98.6 F Temperature Source Oral Pulse Rate 75 75 Pulse Rate [Left] 84 Respiratory Rate 22 Blood Pressure 173/73 H 136/66 Blood Pressure [Right Arm] 183/83 H Blood Pressure Mean 98 89 Blood Pressure Mean [Right Arm] 116 Blood Pressure Source [Right Arm] Automatic Cuff Blood Pressure Position [Right Arm] Supine 02 Sat by Pulse Oximetry 98 99 94 L Oxygen Delivery Method Room Air Room Air Room Air 02/18/24 23:00 02/18/24 23:31 02/19/24 00:00 Temperature Temperature Source Pulse Rate 79 84 81 Pulse Rate [Left] Respiratory Rate Blood Pressure 142/70 H 168/84 H 139/73 Blood Pressure [Right Arm] Blood Pressure Mean 81 111 95 Blood Pressure Mean [Right Arm] Blood Pressure Source [Right Arm] Blood Pressure Position [Right Arm] 02 Sat by Pulse Oximetry 90 L 95 95 Oxygen Delivery Method Room Air Room Air Room Air Lab Data Lab Results 02/18/24 21:10: Urine Color Yellow, Urine Appearance Clear, Urine pH 6.0, Ur Specific [place] 1.020, Urine Protein Negative, Urine Glucose (UA) 3+, Urine Ketones Negative, Urine Blood 1+, Urine Nitrate Negative, Urine Bilirubin Negative, Urine Urobilinogen 0.2, Ur Leukocyte Esterase Negative, Urine RBC 3-5, Urine WBC 10-20, Ur Squamous Epith Cells Occasional, Urine Bacteria Trace, Urine Mucus Trace 02/18/24 21:15: WBC 9.4, RBC 4.37 L, Hgb 16.1, Hct 46.5, MCV 106.4 H, MCH 36.9 H , MCHC 34.7, RDW 14.3, Plt Count 232, MPV 8.2, Neut % (Auto) 74.3, Lymph % (Auto) 14.4, [place] % (Auto) 6.9, Eos % (Auto) 3.3, Baso % (Auto) 1.0, Neut # (Auto) 7.0, Lymph # (Auto) 1.4, [place] # (Auto) 0.7, Eos # (Auto) 0.3, Baso # (Auto) 0.1, Sodium 137, Potassium 4.0, Chloride 105, Carbon Dioxide 28, Anion Gap 8.0, BUN 16, Creatinine 1.70 H, Estimated Creat Clear 34, Estimated GFR 38 L , Est GFR ( Amer) 46 L, Glucose 142 H, Calcium 9.2, Total Bilirubin 0.8, AST 30, ALT 17, Alkaline Phosphatase 126, Total Protein 7.3, Albumin 4.1, Globulin 3.2, Albumin/Globulin Ratio 1.3, Lipase 180 02/18/24 21:15 02/18/24 21:15 Orders (Tests/Meds): ED MEDICATIONS Generic Name Dose Route Start Last Admin Trade Name Freq PRN Reason Stop Dose Admin Sodium Chloride 10 ml 02/18/24 22:16 02/18/24 22:16 Sodium Chloride 0.9% 10ml Syr (Rad Only) IV 03/19/24 22:15 10 ml NEEDED PRN Administration Maintain IV Site Discontinued Medications Generic Name Dose Route Start Last Admin Trade Name Freq PRN Reason Stop Dose Admin Acetaminophen 1,000 mg 02/18/24 21:16 02/18/24 21:21 Acetaminophen 1,000mg/100ml Vial IV 02/18/24 21:17 1,000 mg ONCE ONE Administration Hydromorphone HCl 1 mg 02/18/24 21:53 02/18/24 21:54 Hydromorphone 2mg/Ml Syringe IV 02/18/24 21:54 1 mg ONCE ONE Administration Lactated Ringer's 1,000 mls @ 999 mls/hr 02/18/24 21:53 02/18/24 21:54 Lactated Ringer's 1000 Ml Bag IV 02/18/24 22:53 999 mls/hr .Q1H1M ONE Administration Iopamidol 75 ml 02/18/24 22:16 02/18/24 22:16 Iopamidol-370 (76%);100ml Bottle IV 02/18/24 22:17 75 ml ONCE ONE Administration Ketorolac Tromethamine 30 mg 02/18/24 21:16 02/18/24 21:21 Ketorolac 30mg/Ml Vial IV 02/18/24 21:17 30 mg ONCE ONE Administration Morphine Sulfate 2 mg 02/18/24 21:16 02/18/24 21:22 Morphine 2mg/Ml Syringe IV 02/18/24 21:17 2 mg ONCE ONE Administration Morphine Sulfate 2 mg 02/18/24 21:22 02/18/24 21:24 Morphine 2mg/Ml Syringe IV 02/18/24 21:23 2 mg ONCE ONE Administration Ondansetron HCl 4 mg 02/18/24 21:16 02/18/24 21:21 Ondansetron 4mg/2ml Vial IV 02/18/24 21:17 4 mg ONCE ONE Administration ORDERS Category Date Time Status CT abdomen pelvis w con Stat Cat Scan 02/18/24 21:16 Completed CBC w/Auto Diff [Complete Blood Count Auto Diff] Stat Lab 02/18/24 21:15 Completed CMP [Comprehensive Metabolic Panel] Stat Lab 02/18/24 21:15 Completed Lipase Stat Lab 02/18/24 21:15 Completed UA [Urinalysis and Microscopic] Stat Lab 02/18/24 21:10 Completed Urine Culture Stat Micro 02/18/24 21:10 Received Medical Decision Narrative: In summary patient is 88-year-old male past medical history described above presents emergency department for evaluation of left flank pain in the setting of recent lithotripsy. Patient is hemodynamically stable nontoxic-appearing upon arrival, being in significant pain, afebrile. I suspect that patient has stones that are migrating status post lithotripsy, differential includes ureteral injury, urinary tract infection, among others. Workup be conducted with hematologic labs, CT abdomen pelvis IV contrast. Initial inventions include crystalloid bolus, multimodal pain control with Tylenol, Toradol, morphine, Zofran. Initial workup reviewed by me, hematologic labs have no significant leukocytosis, no acute anemia, elevated creatinine without EMILY per rifle criteria, no critical electrolyte abnormality. Urinalysis shows leukocytosis without evidence of overt infection upon my interpretation. Upon repeat evaluation patient had significant pain for which patient will be given a dose of Dilaudid. CT imaging conducted and shows interval worsening of hydro ureteronephrosis with obstructing 5 mm left ureteral stone slightly migrated distally from previous exam with increasing left perinephric edema. There is also focal mild diverticulitis of the descending colon without complicating features. Patient will be given a dose of Zosyn. Discussion with Antw[facility] ewing pending at time of transfer of care to the oncoming physician, Dr. Herrera. <Marcial Herrera MD - Last Filed: 02/19/24 01:03> Vital Signs: 02/18/24 21:02 02/18/24 21:30 02/18/24 22:30 Temperature 98.6 F Temperature Source Oral Pulse Rate 75 75 Pulse Rate [Left] 84 Respiratory Rate 22 Blood Pressure 173/73 H 136/66 Blood Pressure [Right Arm] 183/83 H Blood Pressure Mean 98 89 Blood Pressure Mean [Right Arm] 116 Blood Pressure Source [Right Arm] Automatic Cuff Blood Pressure Position [Right Arm] Supine 02 Sat by Pulse Oximetry 98 99 94 L Oxygen Delivery Method Room Air Room Air Room Air 02/18/24 23:00 02/18/24 23:31 02/19/24 00:00 Temperature Temperature Source Pulse Rate 79 84 81 Pulse Rate [Left] Respiratory Rate Blood Pressure 142/70 H 168/84 H 139/73 Blood Pressure [Right Arm] Blood Pressure Mean 81 111 95 Blood Pressure Mean [Right Arm] Blood Pressure Source [Right Arm] Blood Pressure Position [Right Arm] 02 Sat by Pulse Oximetry 90 L 95 95 Oxygen Delivery Method Room Air Room Air Room Air Lab Data Lab Results 02/18/24 21:10: Urine Color Yellow, Urine Appearance Clear, Urine pH 6.0, Ur Specific [place] 1.020, Urine Protein Negative, Urine Glucose (UA) 3+, Urine Ketones Negative, Urine Blood 1+, Urine Nitrate Negative, Urine Bilirubin Negative, Urine Urobilinogen 0.2, Ur Leukocyte Esterase Negative, Urine RBC 3-5, Urine WBC 10-20, Ur Squamous Epith Cells Occasional, Urine Bacteria Trace, Urine Mucus Trace 02/18/24 21:15: WBC 9.4, RBC 4.37 L, Hgb 16.1, Hct 46.5, MCV 106.4 H, MCH 36.9 H , MCHC 34.7, RDW 14.3, Plt Count 232, MPV 8.2, Neut % (Auto) 74.3, Lymph % (Auto) 14.4, Christian % (Auto) 6.9, Eos % (Auto) 3.3, Baso % (Auto) 1.0, Neut # (Auto) 7.0, Lymph # (Auto) 1.4, Christian # (Auto) 0.7, Eos # (Auto) 0.3, Baso # (Auto) 0.1, Sodium 137, Potassium 4.0, Chloride 105, Carbon Dioxide 28, Anion Gap 8.0, BUN 16, Creatinine 1.70 H, Estimated Creat Clear 34, Estimated GFR 38 L , Est GFR ( Amer) 46 L, Glucose 142 H, Calcium 9.2, Total Bilirubin 0.8, AST 30, ALT 17, Alkaline Phosphatase 126, Total Protein 7.3, Albumin 4.1, Globulin 3.2, Albumin/Globulin Ratio 1.3, Lipase 180 Orders (Tests/Meds): ED MEDICATIONS Generic Name Dose Route Start Last Admin Trade Name Narda PRN Reason Stop Dose Admin Sodium Chloride 10 ml 02/18/24 22:16 02/18/24 22:16 Sodium Chloride 0.9% 10ml Syr (Rad Only) IV 03/19/24 22:15 10 ml NEEDED PRN Administration Maintain IV Site Discontinued Medications Generic Name Dose Route Start Last Admin Trade Name Narda PRN Reason Stop Dose Admin Acetaminophen 1,000 mg 02/18/24 21:16 02/18/24 21:21 Acetaminophen 1,000mg/100ml Vial IV 02/18/24 21:17 1,000 mg ONCE ONE Administration Hydromorphone HCl 1 mg 02/18/24 21:53 02/18/24 21:54 Hydromorphone 2mg/Ml Syringe IV 02/18/24 21:54 1 mg ONCE ONE Administration Lactated Ringer's 1,000 mls @ 999 mls/hr 02/18/24 21:53 02/18/24 21:54 Lactated Ringer's 1000 Ml Bag IV 02/18/24 22:53 999 mls/hr .Q1H1M ONE Administration Iopamidol 75 ml 02/18/24 22:16 02/18/24 22:16 Iopamidol-370 (76%);100ml Bottle IV 02/18/24 22:17 75 ml ONCE ONE Administration Ketorolac Tromethamine 30 mg 02/18/24 21:16 02/18/24 21:21 Ketorolac 30mg/Ml Vial IV 02/18/24 21:17 30 mg ONCE ONE Administration Morphine Sulfate 2 mg 02/18/24 21:16 02/18/24 21:22 Morphine 2mg/Ml Syringe IV 02/18/24 21:17 2 mg ONCE ONE Administration Morphine Sulfate 2 mg 02/18/24 21:22 02/18/24 21:24 Morphine 2mg/Ml Syringe IV 02/18/24 21:23 2 mg ONCE ONE Administration Ondansetron HCl 4 mg 02/18/24 21:16 02/18/24 21:21 Ondansetron 4mg/2ml Vial IV 02/18/24 21:17 4 mg ONCE ONE Administration ORDERS Category Date Time Status CT abdomen pelvis w con Stat Cat Scan 02/18/24 21:16 Completed CBC w/Auto Diff [Complete Blood Count Auto Diff] Stat Lab 02/18/24 21:15 Completed CMP [Comprehensive Metabolic Panel] Stat Lab 02/18/24 21:15 Completed Lipase Stat Lab 02/18/24 21:15 Completed UA [Urinalysis and Microscopic] Stat Lab 02/18/24 21:10 Completed Urine Culture Stat Micro 02/18/24 21:10 Received Medical Decision Narrative: In summary patient is 88-year-old male past medical history described above presents emergency department for evaluation of left flank pain in the setting of recent lithotripsy. Patient is hemodynamically stable nontoxic-appearing upon arrival, being in significant pain, afebrile. I suspect that patient has stones that are migrating status post lithotripsy, differential includes ureteral injury, urinary tract infection, among others. Workup be conducted with hematologic labs, CT abdomen pelvis IV contrast. Initial inventions include crystalloid bolus, multimodal pain control with Tylenol, Toradol, morphine, Zofran. Initial workup reviewed by me, hematologic labs have no significant leukocytosis, no acute anemia, elevated creatinine without EMILY per rifle criteria, no critical electrolyte abnormality. Urinalysis shows leukocytosis without evidence of overt infection upon my interpretation. Upon repeat evaluation patient had significant pain for which patient will be given a dose of Dilaudid. CT imaging conducted and shows interval worsening of hydro ureteronephrosis with obstructing 5 mm left ureteral stone slightly migrated distally from previous exam with increasing left perinephric edema. There is also focal mild diverticulitis of the descending colon without complicating features. Patient will be given a dose of Zosyn. Discussion with [facility] pending at time of transfer of care to the oncoming physician, Dr. Herrera. Herrera: Upon my assumption of care patient is stable and resting comfortably. I reviewed labs and imaging and agree with Dr. Tucker's assessment and plan thus far. I discussed this case with [facility], unfortunately they are full and unable to accept the patient at this time. [facility] do not have urology services available and were unable to accept the patient. Also discussed this case with [facility], they were unable to accept the patient due to capacity reasons. Ultimately discussed this case with the transfer center. After discussing patient's symptoms as well as lab and imaging findings with worsening kidney function and findings of worsening ureteronephrosis with obstructing stone as well as incidental finding of diverticulitis, patient was accepted for transfer to the [facility] by Dr. Allan. Patient and family are comfortable with this plan. Patient will go via [facility] ambulance for continued management with IV fluids, antibiotics, and pain medications if needed. He was transferred in stable condition. Critical Care <Ousmane Tucker MD - Last Filed: 02/18/24 23:02> Critical Care Time Critical Care Time: No
[2024-02-18 21:28] LABS: Sodium 137 mmol/L (136-145)
[2024-02-18 21:30] VITALS: BP 173/73; PULSE 75; O2SAT 99
[2024-02-18 21:30] LABS: Alanine Aminotransferase 17 U/L (12-78); Alkaline Phosphatase 126 U/L (38-126); Aspartate Amino Transferase 30 U/L (17-59); Bilirubin,Total 0.8 mg/dl (0.2-1.3); Blood Urea Nitrogen 16 mg/dl (9-20); Carbon Dioxide 28 mmol/L (22.0-30.0); Creatinine Clearance Estimated 34 mL/min (50-200); Estimated Glomerular Filt Rate 38 ml/min (>60); GFR (African American) 46 ML/MIN (>60)
[2024-02-18 21:31] LABS: Albumin Level 4.1 g/dl (3.5-5.0); Albumin/Globulin Ratio 1.3 (1.1-1.8); Calcium 9.2 mg/dl (8.4-10.2); Globulin 3.2 g/dL (1.3-3.2); Glucose 142 mg/dl (74-100); Lipase 180 U/L (23-300); Total Protein,Serum 7.3 g/dl (6.3-8.2)
[2024-02-18] MEDS: HYDROMORPHONE 2MG/ML SYRINGE 1 MG IV (21:54)
[2024-02-18] MEDS: LACTATED RINGERS 1000ML 1,000 ML 999 ML IV (21:54)
[2024-02-18 22:03] LABS: Bacteria,Urine Trace /lpf; Mucus,Urine Trace /lpf; Squamous Epithelial Cell,Urine Occasional #/hpf (0-5)
[2024-02-18 22:14] LABS: Microscopic, Urine URINE MICROSCOPIC (MICROSCOPIC)
[2024-02-18] MEDS: SODIUM CHLORIDE 0.9% 10ML SYR (RAD ONLY) 10 ML IV (22:16)
[2024-02-18] MEDS: IOPAMIDOL-370 (76%);100ML BOTTLE 75 ML IV (22:16)
[2024-02-18 22:30] VITALS: BP 136/66; PULSE 75; O2SAT 94
[2024-02-18 23:00] VITALS: BP 142/70; PULSE 79; O2SAT 90
--- NOTE | 2024-02-18 23:26 | PC.NURSE ---
Contacted [place] transfer center in regards for a transfer to [facility]. they'll be reaching out to the team and calling us back.
[2024-02-18 23:31] VITALS: BP 168/84; PULSE 84; O2SAT 95
[2024-02-19] VITALS: BP 139/73; PULSE 81; O2SAT 95
--- NOTE | 2024-02-19 00:16 | PC.NURSE ---
spoke with [facility], they did not have any open beds at this time. Now attempting to call [facility] for a transfer to [place], not received a call back at this time.
--- NOTE | 2024-02-19 00:26 | PC.NURSE ---
Carrie from [facility] informed urology not available at [facility]
--- NOTE | 2024-02-19 00:52 | PC.NURSE ---
Patient accepted to transfer to ED.
[2024-02-19] MEDS: PIPERACILLIN/TAZO 3.375 GM in 0.9 % SODIUM CHLORIDE 50 ML IV (01:01)
--- NOTE | 2024-02-19 01:05 | PC.NURSE ---
attempted to call to make aware of his transfer to . The did not answer at this time.
[2024-02-19] MEDS: LACTATED RINGERS 1000ML 1,000 ML 125 ML IV (01:07)
--- NOTE | 2024-02-19 01:17 | PC.NURSE ---
attempted to call again, did not get an answer. left a voicemail to make her aware of his transfer to [facility].
[2024-02-19 01:23] VITALS: BP 124/68; PULSE 80; RESP 18; TEMP 37; O2SAT 96
== END 2024-02-19 01:32 | disposition short-term general hospital (02) ==
PROVIDERS: Emergency Provider Emergency Medicine; PCP Family Medicine
DX: N13.0 Hydronephrosis with ureteropelvic junction obstruction (principal); R10.32 Left lower quadrant pain; N13.4 Hydroureter; K57.32 Diverticulitis of large intestine without perforation or abscess without bleeding; R11.2 Nausea with vomiting, unspecified
CPT/HCPCS: 74177; 80053; 81001; 83690; 85025; 87086; 96361; 96365; 96375; 99285; J0131; J1170; J1885; J2270; J2405; J2543; J7120; Q9967

== ENCOUNTER 2024-02-19 17:45 | Emergency (ER) | payer MEDICARE, OTHER, SELFPAY ==
[2024-02-19 17:46] VITALS: BP 148/72; PULSE 85; RESP 22; TEMP 36.8; O2SAT 97; BMI 24.3
[2024-02-19] MEDS: ACETAMINOPHEN 1,000MG/100ML VIAL 1000 MG IV (18:17)
[2024-02-19] MEDS: LACTATED RINGERS 1000ML 1,000 ML 999 ML IV (18:17)
[2024-02-19] MEDS: MORPHINE 4MG/ML SYRINGE 4 MG IV ×2 (18:18→20:58)
[2024-02-19 18:22] LABS: Basophils # 0.1 K/mm3 (0-0.2); Basophils % 0.6 % (0.1-2.0); Eosinophils # 0.3 K/mm3 (0.0-0.4); Eosinophils % 4.3 % (0.1-12.0); Hematocrit 48.5 % (42.0-52.0); Hemoglobin 15.8 g/dL (14.1-18.0); Lymphocytes # 0.9 K/mm3 (0.7-4.5); Mean Corpuscular HGB Conc 32.6 g/dL (31.8-35.4); Mean Corpuscular Hemoglobin 34.7 pg (27.0-31.2); Mean Corpuscular Volume 106.3 fl (80-94); Mean Platelet Volume 8.5 fl (7.4-10.4); Monocytes # 0.4 K/mm3 (0.1-1.0); Monocytes % 4.9 % (1.7-9.3); Neutrophils # 5.9 K/mm3 (1.8-7.8); Neutrophils % 78.2 % (37.0-80.0); Platelet Count 221 K/mm3 (142-424); Red Blood Count 4.56 M/mm3 (4.60-6.20); Red Cell Distribution Width 14.1 % (11.5-17.5); White Blood Count 7.5 K/mm3 (4.8-10.8)
[2024-02-19 18:27] LABS: Chloride 106 mmol/L (98-107); Potassium 4.6 mmoL/L (3.5-5.1); Sodium 135 mmol/L (136-145)
[2024-02-19 18:30] LABS: Alanine Aminotransferase 15 U/L (12-78); Albumin Level 3.9 g/dl (3.5-5.0); Albumin/Globulin Ratio 1.2 (1.1-1.8); Alkaline Phosphatase 100 U/L (38-126); Anion Gap 7.6 mEq/L (5-15); Aspartate Amino Transferase 29 U/L (17-59); Bilirubin,Total 0.9 mg/dl (0.2-1.3); Blood Urea Nitrogen 20 mg/dl (9-20); Calcium 9.1 mg/dl (8.4-10.2); Carbon Dioxide 26 mmol/L (22.0-30.0); Creatinine Clearance Estimated 32 mL/min (50-200); Estimated Glomerular Filt Rate 36 ml/min (>60); GFR (African American) 44 ML/MIN (>60); Globulin 3.2 g/dL (1.3-3.2); Glucose 133 mg/dl (74-100); Total Protein,Serum 7.1 g/dl (6.3-8.2)
--- NOTE | 2024-02-19 18:33 | HMH.EDGENADL ---
Discharge Plan Disposition Patient Disposition: Home, Self-Care Chief Complaint: Abdominal Pain Prescriptions Prescriptions: No Action hydrocodone-acetaminophen 5-325 mg tablet 1 tab PO Q8H PRN (Reason: pain) Qty: 12 0RF cefdinir 300 mg capsule 300 mg PO BID 10 Days Qty: 20 0RF ibuprofen 800 mg tablet 800 mg PO TID PRN (Reason: pain) 7 Days Qty: 20 0RF hydrocodone-acetaminophen 5-325 mg tablet 1 tab PO Q6H PRN (Reason: pain) 3 Days Qty: 12 0RF tamsulosin [Flomax] 0.4 mg capsule 0.4 mg PO DAILY 7 Days Qty: 7 0RF ondansetron 4 mg tablet,disintegrating 4 mg PO Q6H PRN (Reason: nausea and vomiting) 5 Days Qty: 20 0RF Referrals Follow up/Referrals: Alexander Waldrop MD [Primary Care Provider] - See instructions Clinical Impressions Clinical Impression: Ureterolithiasis, Flank pain Discharge ED Provider: Ousmane Tucker General Adult HPI General Chief complaint: Abdominal Pain Stated complaint: side pain Time Seen by Provider: 02/19/24 18:01 Mode of Arrival: Ambulatory Source of Information: Patient Limitations: No Limitations Description of Symptoms (Recalled from ER Triage Doc. by RN): left flank pain,kidney stones History of Present Illness HPI narrative: Patient is an 88-year-old male who I saw yesterday who has known left-sided mid ureteral stone, focal diverticulitis of the descending colon who presents emergency department for evaluation of persistent left flank pain. Patient was transferred to [facility] last night due to intractable pain and [facility] not having any beds. He was discharged this afternoon made at home approximately 1 hour when he began writhing in pain with left-sided flank pain. He has no other acute complaints at this time. Related Data Previous Rx's Medication Instructions Recorded hydrocodone 5 mg-acetaminophen 325 1 tab PO Q6H PRN pain 3 days #12 02/02/24 mg tablet tabs ibuprofen 800 mg tablet 800 mg PO TID PRN pain 7 days #20 02/02/24 tabs ondansetron 4 mg disintegrating 4 mg PO Q6H PRN nausea and 02/02/24 tablet vomiting 5 days #20 tabs tamsulosin 0.4 mg capsule (Flomax) 0.4 mg PO DAILY 7 days #7 caps 02/02/24 hydrocodone 5 mg-acetaminophen 325 1 tab PO Q8H PRN pain #12 tabs 02/05/24 mg tablet cefdinir 300 mg capsule 300 mg PO BID 10 days #20 caps 02/07/24 Allergies Allergy/AdvReac Type Severity Reaction Status Date / Time INGREDIENT: NO KNOWN - NO Allergy Unknown Uncoded 08/02/17 15:00 KNOWN DRUG ALLERGY [facility] Disclaimer: The information contained in this section may have been updated after the patient was seen, as this information can be updated by other users. Social History Smoking Status: Never smoker alcohol intake: never current occupational status: other Travel in the last 8 weeks: None ROS Obtained: Yes Systems reviewed as appropriate & no additional complaints except as documented Physical Exam General General appearance: alert and in distress Head Head exam: atraumatic and normocephalic Eye Eye exam: Present PERRL ENT ENT exam: Present mucous membranes moist Neck Neck exam: Present normal inspection Chest Chest inspection: Present normal inspection and symmetric chest wall rise Respiratory Respiratory exam: Present normal lung sounds bilaterally; Absent respiratory distress Cardiovascular Cardiovascular exam: Present regular rate and normal rhythm Abdominal Exam Abdominal exam: Present soft; Absent tenderness or guarding Extremities Exam Extremities exam: Present normal inspection Neurological Exam Neurological exam: Present alert Psychiatric Psychiatric exam: Present normal affect Skin Skin exam: Present warm and dry Medical Decision Making Kory Inquiry Pt receiving controlled substance: No Vital Signs: 02/19/24 17:46 Temperature 98.3 F Temperature Source Oral Pulse Rate [Right] 85 Respiratory Rate 22 Blood Pressure [Right Arm] 148/72 H Blood Pressure Mean [Right Arm] 97 02 Sat by Pulse Oximetry 97 Oxygen Delivery Method Room Air Lab Data Lab Results 02/19/24 18:15: WBC 7.5, RBC 4.56 L, Hgb 15.8, Hct 48.5, MCV 106.3 H, MCH 34.7 H, MCHC 32.6, RDW 14.1, Plt Count 221, MPV 8.5, Neut % (Auto) 78.2, Lymph % (Auto) 12.0, [place] % (Auto) 4.9, Eos % (Auto) 4.3, Baso % (Auto) 0.6, Neut # (Auto) 5.9, Lymph # (Auto) 0.9, [place] # (Auto) 0.4, Eos # (Auto) 0.3, Baso # (Auto) 0.1, Sodium 135 L, Potassium 4.6, Chloride 106, Carbon Dioxide 26, Anion Gap 7.6, BUN 20, Creatinine 1.80 H, Estimated Creat Clear 32, Estimated GFR 36 L, Est GFR ( Amer) 44 L, Glucose 133 H, Calcium 9.1, Total Bilirubin 0.9, AST 29, ALT 15, Alkaline Phosphatase 100, Total Protein 7.1, Albumin 3.9, Globulin 3.2, Albumin/Globulin Ratio 1.2 02/19/24 18:15 02/19/24 18:15 Orders (Tests/Meds): ED MEDICATIONS Discontinued Medications Generic Name Dose Route Start Last Admin Trade Name Freq PRN Reason Stop Dose Admin Acetaminophen 1,000 mg 02/19/24 18:06 02/19/24 18:17 Acetaminophen 1,000mg/100ml Vial IV 02/19/24 18:07 1,000 mg ONCE ONE Administration Lactated Ringer's 1,000 mls @ 999 mls/hr 02/19/24 18:06 02/19/24 18:17 Lactated Ringer's 1000 Ml Bag IV 02/19/24 19:06 999 mls/hr .Q1H1M ONE Administration Ketorolac Tromethamine 15 mg 02/19/24 18:06 02/19/24 19:08 Ketorolac 30mg/Ml Vial IV 02/19/24 18:07 15 mg ONCE ONE Administration Morphine Sulfate 4 mg 02/19/24 18:06 02/19/24 18:18 Morphine 4mg/Ml Syringe IV 02/19/24 18:07 4 mg ONCE ONE Administration Morphine Sulfate 4 mg 02/19/24 19:52 Morphine 4mg/Ml Syringe IV 02/19/24 19:53 ONCE ONE ORDERS Category Date Time Status CBC w/Auto Diff [Complete Blood Count Auto Diff] Stat Lab 02/19/24 18:15 Completed CMP [Comprehensive Metabolic Panel] Stat Lab 02/19/24 18:15 Completed Medical Decision Narrative: In summary patient is a 88-year-old male with past medical history described above who presents emergency department for evaluation of left flank pain. Patient is hemodynamically stable and appearing in pain upon arrival, afebrile. Given that CT imaging has demonstrated his problem yesterday I do not see a reason to repeat it today. He is not particularly tender on my examination, history and physical is consistent with renal colic. Broad-spectrum antibiotics will be deferred. Workup will be conducted with hematologic labs and patient will require transfer for pain control and possible further intervention from a urologic standpoint. Initial interventions include Toradol, Tylenol, morphine, crystalloid bolus. Workup reviewed by me, hematologic labs are largely nonactionable, slightly elevated creatinine which is elevated from his baseline which is being volume resuscitated. No critical electrolyte abnormality or significant leukocytosis. Urinalysis pending. Upon repeat evaluation patient had persistent pain for which will be redosed with morphine. Case was discussed with Antwan Michele and Dr. Ahuja regarding management who graciously excepted patient for transfer for continued evaluation at this time. Critical Care Critical Care Time Critical Care Time: No
[2024-02-19] MEDS: KETOROLAC 30MG/ML VIAL 15 MG IV (19:08)
--- NOTE | 2024-02-19 19:20 | PC.NURSE ---
Went in pt room to administer Toradol, IV in his left AC was infiltrated and he was complaining of pain. New IV placed in right ac, Ofirmev and fluids restarted in that arm.
--- NOTE | 2024-02-19 20:42 | PC.NURSE ---
spoke with [facility] about a possible transfer. Dr. Tucker spoke with the urologist from [facility] about accepting him.
--- NOTE | 2024-02-19 20:44 | PC.NURSE ---
accepted the patient at this time
[2024-02-19 21:05] VITALS: BP 141/64; PULSE 80; RESP 16; TEMP 36.8; O2SAT 98
--- NOTE | 2024-02-19 21:27 | PC.NURSE ---
Report called to Shelley Valentine #[id number] at [facility], [facility] will be in route to transport
--- NOTE | 2024-02-19 21:54 | PC.NURSE ---
Shelley Valentine at [facility] updated that t was in route to facility via [facility]
--- NOTE | 2024-02-19 21:54 | PC.NURSE ---
Attempted to contact Lisa via telephone at , no answer
[2024-02-19 21:55] VITALS: BP 131/62; PULSE 80; RESP 16; TEMP 36.8; O2SAT 97
== END 2024-02-19 21:57 | disposition home or self-care (01) ==
PROVIDERS: Emergency Provider Emergency Medicine; PCP Family Medicine
DX: N13.0 Hydronephrosis with ureteropelvic junction obstruction (principal); R10.32 Left lower quadrant pain; M54.59 Other low back pain; N13.4 Hydroureter
CPT/HCPCS: 80053; 85025; 96361; 96374; 96375; 96376; 99285; J0131; J1885; J2270; J7120